=== PATIENT | female | born 1960 | race Caucasian/White ===

== ENCOUNTER 2016-08-24 10:19 | Emergency (ER) | payer OTHER ==
[~2016-08-24] VITALS: Ht 165.1 cm; Wt 125.4 kg
[~2016-08-24 10:19] MED LIST: BENADRYL25 MG PO; CALCIUM + D 601 EACH PO; CLARITIN10 MG PO; L-LYSINE500 MG PO; MULTI COMPLETE1 EACH PO; PERCOCET 5/31 TABLET PO; PREVACID15 M2 PO; RENATABS TABLE1 EACH PO; VIT C 500 MG-E500 MG PO; WAL-ZAN 150150 MG PO; ZESTORETIC,P1 TABLE2 PO; ZOFRAN4 MG PO
[2016-08-24 11:11] LABS: HEMATOCRIT 39.6 % (36.0-46.0); MCH 28.8 PG (29.0-34.0); MCHC 33.6 G/DL (30.0-36.0); MCV 85.7 FL (83-99); MEAN PLAT.VOLUME 10.6 uM^3 (9.5-12.4); PLATELET COUNT 260 K/uL (156-360); RBC DIS.WIDTH-CV 12.8 % (11.8-14.6); RBC DIS.WIDTH-SD 39.2 % (39-53); RED BLOOD COUNT 4.62 M/uL (3.80-5.20); WHITE BLOOD COUNT 7.6 K/uL (4.1-10.2)
[2016-08-24 11:20] LABS: CHLORIDE 105 mEq/L (99-109); POTASSIUM 3.9 mEq/L (3.7-5.4); SODIUM 143 mEq/L (136-147)
[2016-08-24 11:21] LABS: GLUCOSE 96 mg/dL (70-99)
[2016-08-24 11:23] LABS: ANION GAP 11 MEQ/L (2-14)
[2016-08-24 11:25] LABS: GFR ESTIMATE (CALCULATED) > 59 mL/min/
[2016-08-24 11:26] LABS: UREA NITROGEN (BUN) 13 mg/dL (9-23)
[2016-08-24 11:32] LABS: TROP-I INTERPRETATION NEGATIVE; TROPONIN-I < 0.01 ng/mL (0.0-0.30)
[2016-08-24 15:02] LABS: TROP-I INTERPRETATION NEGATIVE; TROPONIN-I < 0.01 ng/mL (0.0-0.30)
[2016-08-24] MEDS ORDERED: DEXILANT60 MG PO (15:57)
[2016-08-24] MEDS ORDERED: CARAFATE100 MG/ML PO (15:57)
[2016-08-24 16:04] VITALS: BP 125/76
== END 2016-08-24 16:09 | disposition home or self-care (01) ==
LOC: EME 10:19
PROVIDERS: Emergency Medicine
DX: K21.9 Gastro-esophageal reflux disease without esophagitis (principal); E78.5 Hyperlipidemia, unspecified; I10 Essential (primary) hypertension
CPT/HCPCS: 71020; 80048; 84484; 85027; 93005; 99281; 99285

== ENCOUNTER 2017-03-18 17:09 | Observation (INO) | payer OTHER ==
[~2017-03-18] VITALS: Ht 165.1 cm; Wt 135.3 kg
[~2017-03-18 17:09] MED LIST changes: +ASCORBIC ACID500 M3 PO; +CARAFATE100 MG/ML PO; -CLARITIN10 MG PO; +DEXILANT60 MG PO; -MULTI COMPLETE1 EACH PO; +ONE-A-DAY ESSE1 EAC1 PO; -VIT C 500 MG-E500 MG PO; +ZYRTEC10 M3 PO
[2017-03-18 18:17] LABS: ADD MIUA? YES; BILIRUBIN NEGATIVE; BLOOD NEGATIVE; COLOR YELLOW ((YELLOW)); GLUCOSE (STRIP) NEGATIVE; KETONES NEGATIVE; LEUKOCYTES NEGATIVE; NITRITE NEGATIVE; PROTEIN (STRIP) NEGATIVE; SPECIFIC GRAVITY 1.006 (1.000-1.030); UROBILINOGEN 0.2 MG/DL (0.2-1.0)
[2017-03-18 18:21] LABS: BACTERIA RARE /HPF; EPITHELIAL CELLS RARE /HPF; MUCUS NONE SEEN /LPF; RED BLOOD CELLS 0-5 /HPF (0-5); UCUL ADDED? NO; WHITE BLOOD CELLS 0-5 /HPF (0-5)
[2017-03-18 18:21] LABS: BASOPHIL COUNT 0.1 K/uL (0-0.1); EOSINOPHIL (%) 0.9 % (0-5); EOSINOPHIL COUNT 0.1 K/uL (0-0.3); HEMATOCRIT 40.3 % (36.0-46.0); IMMATURE GRANULOCYTE (%) 0.2 % (0.0-0.7); INSTRUMENT ABS NEUTROPHIL CT 6.7 K/uL; LYMPHOCYTE COUNT 2.7 K/uL (1.0-2.8); MCH 28.4 PG (29.0-34.0); MCHC 32.8 G/DL (30.0-36.0); MCV 86.9 FL (83-99); MEAN PLAT.VOLUME 10.8 uM^3 (9.5-12.4); MONOCYTE (%) 7.8 % (3-12); MONOCYTE COUNT 0.8 K/uL (0-0.8); NEUTROPHIL (%) 64.5 % (45-76); NEUTROPHIL COUNT 6.7 K/uL (1.8-6.4); PLATELET COUNT 293 K/uL (156-360); RBC DIS.WIDTH-CV 12.6 % (11.8-14.6); RBC DIS.WIDTH-SD 39.9 % (39-53); RED BLOOD COUNT 4.64 M/uL (3.80-5.20); WHITE BLOOD COUNT 10.4 K/uL (4.1-10.2)
[2017-03-18 18:30] LABS: CHLORIDE 104 mEq/L (99-109); POTASSIUM 3.6 mEq/L (3.7-5.4); SODIUM 142 mEq/L (136-147)
[2017-03-18 18:32] LABS: GLUCOSE 107 mg/dL (70-99)
[2017-03-18 18:34] LABS: ANION GAP 12 MEQ/L (2-14); TOTAL BILIRUBIN 0.3 mg/dL (0.0-1.0)
[2017-03-18 18:36] LABS: ALKALINE PHOSPHATASE 73 IU/L (3-129); GFR ESTIMATE (CALCULATED) > 59 mL/min/
[2017-03-18 18:37] LABS: UREA NITROGEN (BUN) 13 mg/dL (9-23)
[2017-03-18 18:41] LABS: TROP-I INTERPRETATION NEGATIVE; TROPONIN-I < 0.01 ng/mL (0.0-0.30)
[2017-03-18 18:45] LABS: Estimated Average Glucose 117 mg/dL (70-123); HEMOGLOBIN A1c (GLYCOHEMOGLOB) 5.7 % HGB (Below 5.7)
[2017-03-18 20:11] LABS: HDL CHOLESTEROL 60 MG/DL (Desirable>=50); LDL CHOLESTEROL 128 mg/dL (Desirable<100); NON-HDL CHOLESTEROL 147 mg/dL (Desirable<160); TOTAL CHOLESTEROL 207 mg/dL (Desirable<200); TRIGLYCERIDES 95 MG/DL (Normal: <150)
[2017-03-18] MEDS ORDERED: ASPIR 8181 M1 PO (20:29)
[2017-03-18] MEDS ORDERED: OMEPRAZOLE20 M2 PO (20:29)
[2017-03-18] MEDS ORDERED: FLUVIRIN 245 MCG/019 IM (20:30)
[2017-03-18] MEDS ORDERED: HYDROCHLOROTHIA25 MG PO (20:30)
[2017-03-18] MEDS ORDERED: BENADRYL ALLERG25 MG PO (20:30)
[2017-03-18] MEDS ORDERED: GLUCOSAMINE &1 EAC1 PO (20:30)
[2017-03-18] MEDS ORDERED: PRAVACHOL40 MG PO (20:30)
[2017-03-18] MEDS ORDERED: FISH OIL 1,0001 EAC7 PO (20:30)
[2017-03-18 21:47] LABS: SERUM ETHYL ALCOHOL < 10 mg/dL
[2017-03-18 23:09] VITALS: BP 135/86
[2017-03-19 04:00] VITALS: BP 139/75
[2017-03-19 08:11] LABS: POINT-OF-CARE METER ID UU14162513
[2017-03-19 08:12] VITALS: BP 151/72
[2017-03-19 12:20] VITALS: BP 122/68
== END 2017-03-19 14:36 | disposition home or self-care (01) ==
LOC: EME 17:09 → EDOF 20:58 → 5WEST 20:58 → EDOF 20:58 → ENRESERV 21:08 → 5WEST 22:56 → ENPENDDIS 03-19 → 5WEST 03-19 14:36
PROVIDERS: Emergency Medicine; Hospitalist
DX: R20.0 Anesthesia of skin (principal); R20.2 Paresthesia of skin; I10 Essential (primary) hypertension; E78.5 Hyperlipidemia, unspecified; E66.9 Obesity, unspecified; Z82.3 Family history of stroke; Z68.42 Body mass index [BMI] 45.0-49.9, adult; E87.6 Hypokalemia; K21.9 Gastro-esophageal reflux disease without esophagitis; Z87.891 Personal history of nicotine dependence; Z88.0 Allergy status to penicillin; Z88.1 Allergy status to other antibiotic agents; Z88.6 Allergy status to analgesic agent; Z88.8 Allergy status to other drugs, medicaments and biological substances
CPT/HCPCS: 70450; 70551; 71020; 80053; 80061; 80306 90; 81003; 82948; 83036; 84484; 85025; 93005; 93306; 93880; 99281; 99284; G0378; G0480; J1650; J2060